=== PATIENT | male | born 1990 | race Caucasian/White ===

== ENCOUNTER 2022-03-10 10:59 | Emergency (ER) | payer BC, SELFPAY ==
[2022-03-10 11:01] VITALS: BP 155/102; PULSE 67; RESP 18; TEMP 36.3; O2SAT 100; BMI 38.7
--- NOTE | 2022-03-10 11:13 | EDS_ITS ---
HPI History of Present Illness HPI Narrative: Atraumatic left knee pain and swelling. Chief Complaint: Lower Extremity Injury Informant: patient Occured/Mechanism Mechanism/Context: No injury and No blunt trauma Onset/Context/Timing Onset: Yesterday and Days Context: Gradual Onset Timing: Continuous Quality of Pain: Dull and Aching Current Severity: Moderate Maximum Severity: Moderate Associated Symptoms Associated Symptoms: Negative for Parasthesia, Weakness or Loss of Funtion Narrative Narrative: 32-year-old male history of prior trauma to the posterior aspect of his knee but never needed surgery but did need physical therapy that was around 3 years ago was work-related. States that he has had atraumatic left knee pain now for 2 to 3 days. Progressively worsened last night. Denies any fall injury or trauma. He said there is definitely swelling. No redness or warmth. No fever or chills. He has never had any surgery of his knee whatsoever. It hurts more to walk on or to flex or extend. Denies any calf ankle or foot pain. No hip pain. Has had no fever or chills. No prior history. Prior similar symptoms: No Recent Illness/Hospitalization: No PFSH PFSH Medical History no medical history no medical history Home Medications prednisone 20 mg tablet 40 mg PO DAILY 7 days #14 tabs 03/10/22 [Rx Last Taken Unknown] Allergy/AdvReac Type Severity Reaction Status Date / Time No Known Allergies Allergy Verified 03/10/22 11:00 Social History Smoking Status: Never smoker ROS ROS ED ROS Narrative Denies recent symptoms. Atraumatic knee pain. Review of Systems ROS Unobtainable: Denies due to encephalopathy Constitutional Constitutional ED: Denies chills or fever(s) Eyes Eyes: Denies blurry vision ENT ENT ED: Denies ear pain Cardiovascular Cardiovascular: Denies chest pain Respiratory/Chest Respiratory/Chest: Denies cough or dyspnea Gastrointestinal Gastrointestinal: Denies abdominal pain Genitourinary Genitourinary ED: Denies dysuria or hematuria Musculoskeletal Musculoskeletal: Denies arthralgias Integumentary Denies abscess or Abrasions Neurologic Neurologic: Denies headache(s) Psychiatric Psychiatric: Denies anxiety Endocrine Endocrinology: Denies polydipsia Hematologic/Lymphatic Hematologic/Lymphatic: Denies easy bleeding Allergic/Immunologic Allergic/Immunologic ED: Denies mouth swelling or tongue swelling EXAM Physical Exam Narrative Exam Narrative: 32-year-old male vital signs stable afebrile. H EENT exam unremarkable. Neck nontender no lymphadenopathy. Lungs clear to auscultation bilaterally. Heart regular rhythm rate about 70 no murmur. Chest were nontender. Abdomen soft nontender. Moving all 4 extremities. Calves are nontender without edema or cords. Left knee small to moderate effusion. No redness or warmth. Pain with flexion extension. Does not look like a septic joint. No gross bony deformity. He is able to do flexion-extension but with pain. Ankle and hip are nontender. No lymphadenopathy. Calf is nontender without edema. Normal-appearing skin. Const Vital Signs: 03/10/22 11:01 Temperature 97.4 F L Temperature Source Temporal Pulse Rate 67 Respiratory Rate 18 Blood Pressure 155/102 H Blood Pressure Mean 119 Pulse Ox 100 Oxygen Delivery Method Room Air Positive well nourished, well developed and obese; Negative for cachectic, contractures or unkempt General Appearance ED: well developed and NAD; Negative for unkempt, cachectic or contractures Nutritional Appearance: obese; Negative for cachectic HEENT Reports moist mucous membranes normocephalic and atraumatic; Negative for trauma or tenderness Eyes PERRL General Eye ED: Negative for other Neck full ROM and supple Thyroid: Negative for tender Lymph Lymphatic: Negative for other Chest Wall inspection of chest normal and palpation of chest normal Chest: Negative for other Resp normal respiratory effort, no retractions and clear to auscultation bilaterally Effort and Inspection: Negative for pain with movement Auscultation: Negative for rales, rhonchi or wheezes Cardio regular rate, regular rhythm, S1 normal heart sound, S2 normal heart sound and no murmurs Rate: Negative for bradycardia or tachycardic Rhythm: Negative for abnormal rhythm Bruits: Negative for other GI non-tender, non-distended and no masses Inspection: Negative for abdominal distention Auscultation: normoactive bowel sounds Palpation: soft; Negative for tender or guarding Back/Spine no CVA tenderness General Back: Negative for CVA tenderness Cervical Spine: Negative for cervical spine tenderness Thoracic Spine / Upper Back: Negative for thoracic spinal tenderness Lumbar Spine / Lower Back: Negative for lumbar spinal tenderness Extremity normal to inspection and full ROM Extremity Narrative: Except left knee swollen, tender, effusion. No redness. No warmth. He can do range of motion with discomfort. Does not appear to be septic joint. No bony deformity. ACL, PCL, MCL and LCL appear to be intact. General Extremety ED: Yes weight-bearing difficulty General Extremity: weight-bearing difficulty Neuro oriented x3, CN's II-XII intact bilaterally and moves all extremities Sensorium / Orientation: alert, oriented to person, oriented to place and oriented to time; Negative for orientation impaired, confused, lethargic or stuporous Motor Exam: strength 5/5 throughout Psych mental status grossly normal Appearance: Negative for unkempt Speech: No other Mood & Affect: Negative for anxious Skin no wounds Lesions: no lesions Rashes: no rashes Trauma: Negative for abrasion or laceration MDM MDM MDM Narrative Medical decision making narrative: 32-year-old male with atraumatic left knee pain and effusion. Joint effusion versus septic joint versus possibly gout. Clinically does not look septic. Has had no fever. Labs will be obtained both for gout and possible septic joint. X-ray. I attempted to get fluid out of his left knee joint in 2 different approaches and was unable to get any joint fluid. Clinically this looks like gout and not a septic joint. He will be placed on prednisone. And follow-up with orthopedic surgery return if fever, redness or worsening pain. Repeat exam there is no change at 1:47 PM. There is no redness. I discussed with the patient is to be treated his scalp. Prednisone 40 mg here and in daily for 7 days. Follow-up with orthopedics Dr. Duke Deshpande patient knows to return if worse or if he develops a fever or redness. Is on-call. Lab Data Attestation: I reviewed the patient's lab results. Lab results narrative: CBC shows normal white count of 16.1. H&H of 15.7 and 45. Platelets of 319. Lites unremarkable. Gap at 9. Normal BUN and creatinine. Glucose 111. Uric acid is elevated at 9.1. Sed rate is normal at 12. Labs: Laboratory Results - last 24 hr 03/10/22 03/10/22 11:25 11:25 WBC 16.1 H RBC 5.40 Hgb 15.7 Hct 45.7 MCV 84.6 MCH 29.1 MCHC 34.4 RDW Std Deviation 37.3 RDW Coeff of Akin 12.4 Plt Count 319 MPV 10.1 Immature Gran % (Auto) 0.400 Neut % (Auto) 75.2 H Lymph % (Auto) 14.7 L [place] % (Auto) 8.6 Eos % (Auto) 0.7 Baso % (Auto) 0.4 Absolute Neuts (auto) 12.1 H Absolute Lymphs (auto) 2.36 Nucleated RBC % 0 ESR 12 Sodium 141 Potassium 3.9 Chloride 106 Carbon Dioxide 26.0 Anion Gap 9 BUN 12 Creatinine 0.89 Estim Creat Clear Calc 146.29 Est GFR (MDRD) Af Amer 127 Est GFR (MDRD) Non-Af 105 BUN/Creatinine Ratio 13.4 Glucose 111 H Uric Acid 9.1 H Calcium 9.8 Radiography Diagnostic Testing: Clinical Impression(s) from Imaging Studies Knee X-Ray 03/10/22 11:35 IMPRESSION: Small joint effusion. Electronically Signed: Vinay Kumar MD at 12:12 EST , Knee x-ray, 4 views, interpreted by myself and radiologist shows an effusion but otherwise no acute abnormality. Discharge Plan Triage Chief Complaint: Lower Extremity Injury ED Provider: Woody Barnes Dx/Rx/DC Orders Clinical Impression: Acute pain of left knee, Effusion into joint, Gout Instructions: ED Gout Prescriptions: New prednisone 20 mg tablet 40 mg PO DAILY 7 Days Qty: 14 0RF Primary Care Provider: Care Physician,No Primary Referrals: Ephraim Deshpande MD [Med Staff - Active Staff] - As soon as possible Care Physician,No Primary [Primary Care Provider] - Activity Restrictions/Additional Instructions: Clinically I think you have gout in your left knee. Do not ice it. Elevate to decrease the swelling. Prednisone 40 mg daily for the next week. Return immediately if fever or the knee starts getting red and feels a lot worse. Follow-up with the orthopedic doctor Dr. Duke Deshpande. I would have like to sent joint fluid but as you know we were unable to get any fluid out of the knee. Disposition Disposition: Home, Self Care
--- NOTE | 2022-03-10 11:35 | RAD_ITS ---
STUDY: X-RAY - LEFT KNEE REASON FOR EXAM: Male, 32 years old. Atraumatic pain and effusion TECHNIQUE: 4 view(s) of the knee. COMPARISON: None. FINDINGS: Normal visualized distal femur. Normal visualized proximal tibia and fibula. Normal proximal tibiofibular articulation. Normal medial femorotibial compartment. Normal lateral femorotibial compartment. Normal patellofemoral articulation. Small joint effusion RAD/Knee 4 or More Views IMPRESSION: Small joint effusion. Electronically Signed: Vinay Kumar MD at 12:12 EST ,
[2022-03-10 11:48] LABS: Anion Gap 9 (5-15); BUN 12 mg/dL (7-18); BUN/Creat Ratio 13.4 RATIO (10-20); Calcium,Total 9.8 mg/dL (8.5-10.1); Chloride 106 mmol/L (98-107); Creatinine, Serum 0.89 mg/dL (0.70-1.30); EST Glomerular Filtration Rate 105 mL/min (>60); Est Glom Filt Rate - Afr Amer 127 mL/min (>60); Estimated Creatinine Clearance 146.29 ml/min; Glucose 111 mg/dL (74-106); Potassium 3.9 mmol/L (3.5-5.1); Sodium Level 141 mmol/L (136-145); Uric Acid 9.1 mg/dL (3.5-7.2)
[2022-03-10 11:49] LABS: Absolute Lymphocyte Count 2.36 X10^3/uL (0.83-4.51); Absolute Neutrophil Count 12.1 X10^3/uL (2.0-7.7); Basophil# 0.07 X10^3/uL; Basophil% 0.4 % (0-1); Eosinophil# 0.11 X10^3/uL; Eosinophils% 0.7 % (0-5); Hematocrit 45.7 % (40-54); Hemoglobin 15.7 g/dL (13.0-16.5); Lymphocyte # 2.36 X10^3/ul (0.83-4.51); Lymphocyte % 14.7 % (19-41); Mean Corp Hgb Conc 34.4 g/dL (32-36); Mean Corpuscular Hgb 29.1 pg (27.0-32.0); Mean Corpuscular Volume 84.6 fL (80-94); Mean Platelet Vol. 10.1 fl (6.2-12.0); Monocyte# 1.39 X10^3/uL; Monocyte% 8.6 % (0-10); NRBC Flagged by Analyzer 0 % (0-5); Neutrophil # 12.08 X10^3/uL (2.7-7.7); Neutrophil % 75.2 % (47-70); Platelet Count 319 K/mm3 (150-450); RBC Distribution Width CV 12.4 % (11.6-14.6); RBC Distribution Width SD 37.3 fl (35.1-43.9); White Blood Count 16.1 K/mm3 (4.4-11.0)
[2022-03-10 12:17] LABS: Erythrocyte Sedimentation Rate 12 mm/hr (0-20)
--- NOTE | 2022-03-10 13:09 | CM.ED ---
SW Note Referral Source: Case Find Referral Reason: No Primary Care Physician (PCP) SW reviewed chart and noted that patient has no PCP. SW provided patient with list of [facility] and [facility] Physician List for reference. No other issues or concerns voiced at this time. SW remains available for any additional needs. Plan: Provided patient with PCP information Eugenia ALICIA
[2022-03-10] MEDS: predniSONE 20 MG Tablet 40 MG PO (13:59)
[2022-03-10 14:04] VITALS: RESP 18
== END 2022-03-10 14:05 | disposition home or self-care (01) ==
PROVIDERS: Emergency Provider Emergency Medicine; Visit Provider Emergency Medicine
DX: M25.562 Pain in left knee (principal); M25.462 Effusion, left knee; M10.9 Gout, unspecified; E66.9 Obesity, unspecified
CPT/HCPCS: 73564; 80048; 84550; 85025; 85652; 99284; A4216

== ENCOUNTER 2022-05-15 08:45 | Emergency (ER) | payer BC, SELFPAY ==
[2022-05-15 08:46] VITALS: BP 151/100; PULSE 76; RESP 16; TEMP 36.3; O2SAT 96; BMI 37.7
--- NOTE | 2022-05-15 09:00 | EDS_ITS ---
HPI HPI - GI History of Present Illness Chief Complaint: Flank Pain Informant: patient Abdominal Pain/Flank Pain Onset: Days (3) Context: Sudden Onset Timing: Waxes and wanes Quality: Aching Location: Right Flank Current Severity: Mild Maximum Severity: Severe Worsened by: Nothing Relieved by: Nothing Nausea/Vomiting/Emesis GI Symptom: Positive for Nausea and Vomiting Onset: Days (2) Quality: Positive for Nonbilious; Negative for Blood streaks, Coffee ground or Hematemesis Severity: Severe Diarrhea/Melena/Hematochezia GI Symptom: Negative for Diarrhea, Melena or Hematochezia Associated Symptoms Associated Symptoms: Positive for Urgency; Negative for Dysuria, Frequency or Hematuria Narrative Narrative: Patient with a history of kidney stones feels like he is having another episode of kidney stone pain. Started a couple days ago was mild went away and then day before yesterday started back severely and he has been vomiting a lot with now dry heaving because he has been vomiting up all the liquid he has tried to keep down. He denies any fevers or chills. He denies any abdominal pain, most of the pain is in the back and going around into the flank. He has been trying an herbal supplement for the pain but no [id number] or prescription medications. No history of surgery needed for kidney stones. Denies any new symptoms or different symptoms. [facility] Medical History (Updated 05/15/22 @ 12:[address] Jony Godinez MD) Kidney stones Home Medications prednisone 20 mg tablet 40 mg PO DAILY 7 days #14 tabs 03/10/22 [Rx Last Taken Unknown] Allergy/AdvReac Type Severity Reaction Status Date / Time No Known Allergies Allergy Verified 05/15/22 08:48 Surgical History no surgical history no surgical history Social History Smoking Status: Never smoker ROS ROS ED Constitutional Constitutional ED: Denies chills or fever(s) Eyes Eyes: Denies change in vision or diplopia ENT ENT ED: Denies rhinorrhea or sore throat Cardiovascular Cardiovascular: Denies chest pain or palpitations Respiratory/Chest Respiratory/Chest: Denies cough or dyspnea Gastrointestinal Gastrointestinal: Reports abdominal pain, nausea and vomiting; Denies diarrhea Genitourinary Genitourinary ED: Reports flank pain; Denies dysuria or hematuria Musculoskeletal Musculoskeletal: Reports back pain; Denies neck pain Integumentary Denies abscess or rash Neurologic Neurologic: Denies headache(s), paresthesias or weakness Psychiatric Psychiatric: Denies anxiety or suicidal thoughts EXAM Physical Exam Const Vital Signs: 05/15/22 08:46 05/15/22 11:19 Temperature 97.3 F L Temperature Source Temporal Pulse Rate 76 Respiratory Rate 16 16 Blood Pressure 151/100 H Blood Pressure Mean 117 Pulse Ox 96 Oxygen Delivery Method Room Air Positive well nourished and well developed General Appearance ED: well developed and NAD HEENT Reports moist mucous membranes normocephalic and atraumatic Eyes PERRL and EOMs intact bilaterally Neck full ROM and supple Resp normal respiratory effort and clear to auscultation bilaterally Cardio regular rate, regular rhythm and no murmurs Rate: Negative for tachycardic GI non-tender and non-distended Auscultation: normoactive bowel sounds Palpation: soft; Negative for pulsatile mass Back/Spine no CVA tenderness Back/Spine Narrative: No superficial muscular tenderness. Normal inspection no rash. General Back: other FROM Extremity normal to inspection General Extremety ED: Negative for edema, pulses abnormal or tenderness General Extremity: Negative for edema or pulses abnormal Neuro oriented x3, CN's II-XII intact bilaterally and no sensory deficits noted Sensorium / Orientation: awake and alert Motor Exam: strength 5/5 throughout Psych mental status grossly normal and thought process normal Skin no rashes or lesions noted and no wounds MDM MDM MDM Narrative Medical decision making narrative: Patient treated with IV fluids given his symptoms of dehydration, Zofran, and Toradol. On reevaluation he feels much better. I reviewed the CT images and the report, my interpretation of the CT agrees with that of the radiologist. It appears patient just recently passed a stone but he also has an asymptomatic nonobstructing right renal stone as well. He was advised with regards to this, stable for discharge home in improved condition. He does have some mild CONOR, so I recommend outpatient follow-up to have this rechecked at some point. Unknown if this is his baseline or not since he has nothing to compare to, I attempted to look for prior labs but there were none. He does not have a doctor so he was referred to the next physician on the unassigned list. Lab Data Attestation: I reviewed the patient's lab results. Labs: Laboratory Results - last 24 hr 05/15/22 05/15/22 05/15/22 08:54 09:10 09:10 WBC 13.9 H RBC 5.43 Hgb 15.6 Hct 46.3 MCV 85.3 MCH 28.7 MCHC 33.7 RDW Std Deviation 38.8 RDW Coeff of Akin 12.7 Plt Count 268 MPV 10.8 Immature Gran % (Auto) 0.400 Neut % (Auto) 81.5 H Lymph % (Auto) 11.3 L [place] % (Auto) 6.3 Eos % (Auto) 0.3 Baso % (Auto) 0.2 Absolute Neuts (auto) 11.3 H Absolute Lymphs (auto) 1.57 Nucleated RBC % 0 Sodium 135 L Potassium 3.9 Chloride 105 Carbon Dioxide 25.0 Anion Gap 5 BUN 16 Creatinine 1.35 H Estim Creat Clear Calc 96.44 Est GFR (MDRD) Af Amer 79 Est GFR (MDRD) Non-Af 65 BUN/Creatinine Ratio 11.9 Glucose 117 H Calcium 9.8 Urine Color Yellow Urine Clarity Clear Urine pH 6.0 Ur Specific [place] 1.015 Urine Protein 100 H Urine Glucose (UA) Normal Urine Ketones 150 A* Urine Occult Blood 25 H Urine Nitrite Negative Urine Bilirubin Negative Urine Urobilinogen 1 H Ur Leukocyte Esterase Negative Urine RBC 0-5 SEEN Urine WBC 0-5 SEEN Ur Squamous Epith Cells 0-5 SEEN Urine Bacteria 0 SEEN Urine Mucus 0 SEEN Radiography Diagnostic Testing: Clinical Impression(s) from Imaging Studies Abdomen/Pelvis CT 05/15/22 10:00 IMPRESSION: Findings in keeping with a recently passed right ureteral calculus. The calculus is at the base of the bladder on the right side. Nonobstructive 4.6 mm calculus in the lower pole of the right kidney. Electronically Signed: Vinay Kumar MD at 10:13 EDT , Discharge Plan Triage Chief Complaint: Flank Pain ED Provider: Jony Godinez Dx/Rx/DC Orders Clinical Impression: Renal colic on right side, Urolithiasis Instructions: ED Kidney Stone, Passed Prescriptions: No Action prednisone 20 mg tablet 40 mg PO DAILY 7 Days Qty: 14 0RF Primary Care Provider: Care Physician,No Primary Referrals: Demian Moon MD [Med Staff - Active Staff] - (Within the next month or so, call for appointment) Care Physician,No Primary [Primary Care Provider] - Disposition Disposition: Home, Self Care
[2022-05-15 09:29] LABS: Absolute Lymphocyte Count 1.57 X10^3/uL (0.83-4.51); Absolute Neutrophil Count 11.3 X10^3/uL (2.0-7.7); Basophil# 0.03 X10^3/uL; Basophil% 0.2 % (0-1); Eosinophil# 0.04 X10^3/uL; Eosinophils% 0.3 % (0-5); Hematocrit 46.3 % (40-54); Hemoglobin 15.6 g/dL (13.0-16.5); Lymphocyte # 1.57 X10^3/ul (0.83-4.51); Lymphocyte % 11.3 % (19-41); Mean Corp Hgb Conc 33.7 g/dL (32-36); Mean Corpuscular Hgb 28.7 pg (27.0-32.0); Mean Corpuscular Volume 85.3 fL (80-94); Mean Platelet Vol. 10.8 fl (6.2-12.0); Monocyte# 0.87 X10^3/uL; Monocyte% 6.3 % (0-10); NRBC Flagged by Analyzer 0 % (0-5); Neutrophil # 11.29 X10^3/uL (2.7-7.7); Neutrophil % 81.5 % (47-70); Platelet Count 268 K/mm3 (150-450); RBC Distribution Width CV 12.7 % (11.6-14.6); RBC Distribution Width SD 38.8 fl (35.1-43.9); Red Blood Count 5.43 M/mm3 (4.6-6.2); White Blood Count 13.9 K/mm3 (4.4-11.0)
[2022-05-15] MEDS: 0.9% Normal Saline 1,000 ML 999 ML IV (09:46)
[2022-05-15] MEDS: Ketorolac 30 MG/ML Syringe IV (09:46)
[2022-05-15] MEDS: Ondansetron 4 MG/2 ML Vial IV (09:46)
[2022-05-15 09:52] LABS: Bacteria 0 SEEN /hpf (None Seen); Mucous, Urine 0 SEEN /hpf (<or=2+)
[2022-05-15 09:54] LABS: Color, Urine Yellow (Yellow); Glucose, Dipstick Normal (Normal); Leukocyte Esterase-Dipstick Negative /ul (Negative); Nitrite-Dipstick Negative (Negative); Occult Blood-Urine 25 /ul (Negative); Protein-Dipstick 100 mg/dl (Negative); Specific Gravity, Urine 1.015 (1.002-1.030); Urine Bilirubin Dipstick Negative (Negative); Urine Clarity Clear (Clear); Urine Urobilinogen 1 mg/dl (Normal)
[2022-05-15 10:00] LABS: Anion Gap 5 (5-15); BUN 16 mg/dL (7-18); BUN/Creat Ratio 11.9 RATIO (10-20); Calcium,Total 9.8 mg/dL (8.5-10.1); Chloride 105 mmol/L (98-107); Creatinine, Serum 1.35 mg/dL (0.70-1.30); EST Glomerular Filtration Rate 65 mL/min (>60); Est Glom Filt Rate - Afr Amer 79 mL/min (>60); Estimated Creatinine Clearance 96.44 ml/min; Glucose 117 mg/dL (74-106); Potassium 3.9 mmol/L (3.5-5.1); Sodium Level 135 mmol/L (136-145)
--- NOTE | 2022-05-15 10:00 | CT_ITS ---
STUDY: CT ABDOMEN AND PELVIS WITHOUT CONTRAST REASON FOR EXAM: Male, 32 years old. R flank pain, hx stones RADIATION DOSAGE (If Supplied By Facility): CTDIvol = ( 23.83 ) mGy, DLP = ( 1375.22 ) mGycm TECHNIQUE: Transaxial images were obtained from the dome of the diaphragm to the symphysis pubis without oral contrast, and without intravenous contrast. Sagittal and coronal images were reconstructed. Individualized dose optimization techniques were used for this CT. COMPARISON: None. FINDINGS: Small amount of bilateral retroareolar breast tissue. The visualized lung bases are unremarkable. The visualized portions of the heart are within normal limits. There is decreased attenuation of the liver consistent with steatosis. Normal gallbladder and extrahepatic biliary system. Normal spleen. Normal pancreas. Normal bilateral adrenal glands. Right perinephric stranding. Mild degree of right hydronephrosis and hydroureter. There is a 3.9 mm calculus at the base of the bladder on the right side. This is suggestive of a recently passed right ureteral calculus. There is a 4.6 mm nonobstructive calculus in the lower pole calyx of the right kidney. Normal left kidney. Normal visualized stomach. Normal small intestine. Normal colon. The appendix is visualized and appears normal. Normal abdominal aorta. Normal inferior vena cava. Normal retroperitoneum. Normal urinary bladder. There is a small umbilical hernia containing fat. Normal osseous structures. CT/Abdomen/Pelvis without Cont IMPRESSION: Findings in keeping with a recently passed right ureteral calculus. The calculus is at the base of the bladder on the right side. Nonobstructive 4.6 mm calculus in the lower pole of the right kidney. Electronically Signed: Vinay Kumar MD at 10:13 EDT ,
[2022-05-15 10:21] LABS: Ketone-Dipstick 150 mg/dl (Negative); Red Blood Cells-Urine 0-5 SEEN /hpf (0-5); Squamous Epithelial Cells - UA 0-5 SEEN /hpf (0-5); White Blood Cells 0-5 SEEN /hpf (0-5)
[2022-05-15 11:19] VITALS: RESP 16
== END 2022-05-15 12:57 | disposition home or self-care (01) ==
PROVIDERS: Emergency Provider Emergency Medicine; Visit Provider Emergency Medicine
DX: N20.0 Calculus of kidney (principal)
CPT/HCPCS: 74176; 80048; 81001; 85025; 96374; 96375; 99283; J7030; J2405